=== PATIENT | male | born 1970 | race Caucasian/White ===

== ENCOUNTER 2020-10-14 01:31 | Emergency (ER) | payer MEDICARE, OTHER ==
[~2020-10-14 01:31] MED LIST: AUGMENTIN 875-1 EACH PO
== END 2020-10-14 03:21 | disposition home or self-care (01) ==
LOC: ER1 01:31
DX: H61.23 Impacted cerumen, bilateral (principal); I25.10 Atherosclerotic heart disease of native coronary artery without angina pectoris; I11.9 Hypertensive heart disease without heart failure
CPT/HCPCS: 69210; 99282

== ENCOUNTER 2021-07-19 20:03 | Emergency (ER) | payer MEDICARE, OTHER | END 2021-07-19 21:00 | disposition home or self-care (01) | LOC: ER1 20:03 | DX: H61.23 Impacted cerumen, bilateral (principal); E11.9 Type 2 diabetes mellitus without complications | CPT/HCPCS: 99282 ==

== ENCOUNTER 2022-02-20 22:09 | Emergency (ER) | payer MEDICARE, OTHER ==
[2022-02-20 23:05] LABS: HEMOGLOBIN 13.9 gm/dl (14.0-17.5); RED BLOOD COUNT 4.59 M/UL (4.20-5.50); WHITE BLOOD COUNT 7.1 K/UL (4.5-11.0)
[2022-02-20 23:24] LABS: BUN/CREATININE RATIO 14 (0-10)
== END 2022-02-21 02:33 | disposition home or self-care (01) ==
LOC: ER1 22:09
PROVIDERS: Student in an Organized Health Care Education/Training Program
DX: R10.9 Unspecified abdominal pain (principal); I10 Essential (primary) hypertension
CPT/HCPCS: 80053; 81001; 83690; 85025; 99284